=== PATIENT | male | born 2000 | race Caucasian/White ===

== ENCOUNTER 2022-03-03 05:36 | Emergency (ER) | payer SELFPAY ==
[~2022-03-03] VITALS: Ht 175.3 cm; Wt 88.5 kg
[2022-03-03 05:40] VITALS: BP 118/60
--- NOTE | 2022-03-03 05:40 | NUR ---
PT [facility] TAKEN TO CHAIR B
[2022-03-03] MEDS ORDERED: IBUPROFEN 800 MG TAB PO ONE (05:45)
[2022-03-03 05:55] VITALS: BP 118/60
== END 2022-03-03 05:55 ==
LOC: EDSEX 05:36 → MED 05:36
DX: S00.12XA Contusion of left eyelid and periocular area, initial encounter (principal); S80.12XA Contusion of left lower leg, initial encounter; F17.210 Nicotine dependence, cigarettes, uncomplicated; Z02.89 Encounter for other administrative examinations; V47.5XXA Car driver injured in collision with fixed or stationary object in traffic accident, initial encounter; Y93.89 Activity, other specified; Y92.89 Other specified places as the place of occurrence of the external cause; Y99.8 Other external cause status
CPT/HCPCS: 99283